=== PATIENT | female | born 1950 | race Caucasian/White ===

== ENCOUNTER 2017-06-17 09:56 | Observation (INO) | payer MEDICARE, BC ==
[2017-06-17] MEDS ORDERED: HYDRALAZINE HYDROCHLORIDE 20 MG/ML SOL IV ONE ×2 (10:14→12:03)
[2017-06-17] MEDS: SODIUM CHLORIDE 0.9% FLUSH 10 ML SOL IV PRN ×2 (10:14→21:13)
[2017-06-17] MEDS ORDERED: HYDRALAZINE HYDROCHLORIDE 20 MG/ML SOL ONE (10:15)
[2017-06-17 10:17] LABS: BASOPHILS % (AUTO) 1 % (0-3); EOSINOPHILS % (AUTO) 5 % (0-9); HEMATOCRIT 40 % (35-47); MEAN CORPUSCULAR HGB CONC 35.6 gm/dl (32.0-36.0); MEAN CORPUSCULAR VOLUME 89 fL (81-99); MONOCYTES % (AUTO) 8.6 % (0-12); NEUTROPHILS % (AUTO) 61.1 % (37-80)
[2017-06-17 10:24] LABS: CALCIUM 8.1 mg/dl (8.5-10.1)
[2017-06-17] MEDS ORDERED: ASPIRIN 81 MG CHEWABLE CTB PO ONE (11:26)
[2017-06-17] MEDS ORDERED: ASPIRIN 81 MG CHEWABLE CTB ONE (11:28)
[2017-06-17 11:54] LABS: HEMOGLOBIN A1C 6.2 % (4.8-6.0)
[2017-06-17 12:18] VITALS: O2SAT 96
[2017-06-17] MEDS: ACETAMINOPHEN 325 MG PO PRN ×2 (13:36→19:24)
[2017-06-17] MEDS: LISINOPRIL 5 MG TAB PO SCH (14:54)
[2017-06-17 16:09] VITALS: RESP 18
[2017-06-17] MEDS: DULOXETINE HCL 20 MG ECC PO SCH (20:18)
[2017-06-17] MEDS ORDERED: PANTOPRAZOLE SODIUM 40 MG ECT PO ONE (20:23)
[2017-06-17] MEDS ORDERED: ZOLPIDEM TARTRATE 5 MG TAB PO PRN (20:24)
[2017-06-17] MEDS ORDERED: SIMVASTATIN 20 MG TAB PO SCH (21:00)
[2017-06-18 07:42] LABS: LDL CHOLESTEROL,CALCULATED 110.6 mg/dl (50-130)
[2017-06-18 08:30] VITALS: BP 137/86; PULSE 85; TEMP 98.1
[2017-06-18] MEDS ORDERED: ASPIRIN EC 81 MG PO SCH (09:00)
[2017-06-18] MEDS ORDERED: PANTOPRAZOLE SODIUM 40 MG ECT PO SCH (09:00)
[2017-06-18] MEDS ORDERED: PNEUMOC 13-VAL CONJ-DIP CRM/PF 0.5 ML SYRINGE IM ONE (09:07)
[2017-06-18] MEDS ORDERED: INFLUENZA HIGH DOSE VACCINE 0.5 ML SUS IM ONE (09:07)
[2017-06-18] MEDS: LISINOPRIL 5 MG TAB PO SCH (09:10)
[2017-06-18] MEDS: DULOXETINE HCL 20 MG ECC PO SCH (09:10)
== END 2017-06-18 10:20 | disposition home or self-care (01) | DRG 66 ==
LOC: ED 09:56 → ACUTE CARE 11:45 → UNDOADMOB 11:45 → ACUTE CARE 11:55
PROVIDERS: ADMIT Family Medicine; ATTEND Family Medicine
DX: I63.9 Cerebral infarction, unspecified (principal); E11.9 Type 2 diabetes mellitus without complications; R20.0 Anesthesia of skin; R40.2362 Coma scale, best motor response, obeys commands, at arrival to emergency department; R40.2142 Coma scale, eyes open, spontaneous, at arrival to emergency department; R40.2252 Coma scale, best verbal response, oriented, at arrival to emergency department; R29.701 NIHSS score 1
CPT/HCPCS: 36415; 70450; 80048; 80061; 83036; 85025; 90662; 90670; 93005; 93012; 96374; 99217; 99218; 99285; J0360; A9270-GY; G0008